=== PATIENT | female | born 1950 ===

== ENCOUNTER 2017-05-09 16:00 | Inpatient (IN) | payer MEDICARE, MEDICAID ==
[~2017-05-09] VITALS: Ht 157.5 cm; Wt 63.5 kg
[2017-05-09] MEDS ORDERED: AMLO10TA2 PO (16:34)
[2017-05-09] MEDS ORDERED: METF500T3 PO (16:34)
[2017-05-09] MEDS ORDERED: [UNRECOGNIZED DRUG - CODE] PO (16:34)
[2017-05-09] MEDS ORDERED: INSU100V28 SUBCUT (16:41)
[2017-05-09] MEDS ORDERED: LISI2.5T2 PO (16:41)
[2017-05-09] MEDS ORDERED: HYDR-4076 PO (16:41)
[2017-05-09] MEDS ORDERED: LORA0.5T PO (16:47)
[2017-05-09] MEDS ORDERED: TEMA7.5C2 PO (17:23)
[2017-05-09] MEDS ORDERED: SENN8.6C5 PO (17:23)
[2017-05-09] MEDS ORDERED: POLY17PO4 PO (17:23)
[2017-05-09] MEDS ORDERED: DIVA125C PO ×2 (17:25)
[2017-05-09 17:31] LABS: *BILIRUBIN,URIN NEGATIVE (NEGATIVE); *BLOOD, URINE NEGATIVE (NEGATIVE); *CLARITY,URINE SLIGHTLY CLOUDY (CLEAR); *COLOR,URINE YELLOW (YELLOW); *KETONES,URINE NEGATIVE (NEGATIVE); *PROTEIN,URINE NEGATIVE (NEGATIVE); *UROBILINOGEN,URINE 0.2 E.U./dl (NORMAL); LEUKOCYTE ESTERASE ,URINE 1+ (NEGATIVE); NITRITE, URINE NEGATIVE (NEGATIVE); PH,URINE 7.5 (5.0-8.0); UGLUCOSE NEGATIVE (NEGATIVE)
[2017-05-09 17:43] LABS: *AMPHETAMINE, URINE NEGATIVE (NEGATIVE); *BARBITURATE, URINE NEGATIVE (NEGATIVE); *CANNABINOID, URINE NEGATIVE (NEGATIVE); *COCCAINE, URINE NEGATIVE (NEGATIVE); *OPIATE, URINE NEGATIVE (NEGATIVE); *PHENCYCLIDINE SCREEN,URINE NEGATIVE (NEGATIVE)
[2017-05-09 17:48] LABS: BACTERIA,URINE MODERATE /HPF (NONE SEEN); RBC,URINE 0-3 /HPF (0-3); SQUAMOUS EPITHELIAL CELL,UR MODERATE /HPF (NONE SEEN); WBC,URINE 20-50 /HPF (0-3)
[2017-05-09 17:55] LABS: BASOPHILS # (AUTO) 0.1 K/uL (0.0-8.0); BASOPHILS % (AUTO) 1.5 % (0.0-2.0); EOSINOPHILS # (AUTO) 0.5 K/uL (0.0-0.7); EOSINOPHILS % (AUTO) 5.7 % (0.0-7.0); HEMATOCRIT 39.6 % (37-47); HEMOGLOBIN 13.1 G/DL (12.0-16.0); LYMPHOCYTES # (AUTO) 3.3 K/UL (0.8-4.8); LYMPHOCYTES % (AUTO) 37.3 % (20.5-51.5); MEAN CORPUSCULAR HEMOGLOBIN 27.4 UUG (27.0-31.0); MEAN CORPUSCULAR HGB CONC 33 g/dL (32.0-37.0); MEAN CORPUSCULAR VOLUME 82.8 FL (81.0-99.0); MONOCYTES # (AUTO) 0.4 K/UL (0.1-1.30); MONOCYTES % (AUTO) 5.1 % (0.0-11.0); NEUTROPHILS # (AUTO) 4.5 K/UL (1.8-8.9); NEUTROPHILS % (AUTO) 50.4 % (38.5-71.5); PLATELET COUNT (AUTO) 257 K/UL (150-450); RED BLOOD CELL COUNT(AUTO) 4.77 MIL/UL (4.2-5.4); WHITE BLOOD COUNT (AUTO) 8.8 K/UL (4.0-11.2)
[2017-05-09 18:09] LABS: CARBON DIOXIDE 28 mmol/L (21-32); CHLORIDE 104 mmol/L (98-107); CREATININE 0.6 mg/dL (0.6-1.3); GLUCOSE 100 mg/dL (74-106); POTASSIUM 3.6 mmol/L (3.5-5.1); UREA NITROGEN, BLOOD 12 mg/dL (7-18)
[2017-05-09 18:15] LABS: ACETAMINOPHEN < 2.0 ug/mL (10-30); ALANINE AMINOTRANSFERASE 22 U/L (14-59); ALKALINE PHOSPHATASE 64 U/L (50-136); ASPARTATE AMINOTRANSFERASE 19 U/L (15-37); BILIRUBIN,DIRECT 0.1 mg/dL (0.0-0.2); BILIRUBIN,TOTAL 0.2 mg/dL (0.2-1.0); TOTAL PROTEIN, SERUM 7.5 g/dL (6.4-8.2)
[2017-05-09] MEDS ORDERED: IV NS 1000 ML 1,000 ML IV ONE (18:15)
[2017-05-09] MEDS ORDERED: ACETAMINOPHEN 650 MG/20.3 ML LIQUID UDC PO ONE (18:15)
[2017-05-09] MEDS ORDERED: CEFTRIAXONE 1 G in IV DEXTROSE 5% 50 ML IV ONE (18:15)
[2017-05-09 18:19] LABS: ETHANOL < 3 MG/DL (0-0)
[2017-05-09] MEDS ORDERED: ACETAMINOPHEN 650 MG/20.3 ML LIQUID UDC ONE (18:31)
[2017-05-09] MEDS ORDERED: CEFTRIAXONE 1 G VIAL ONE (18:31)
--- NOTE | 2017-05-09 18:40 | NUR ---
received report from ER waiting for patient to arrive on the unit.
[2017-05-09] MEDS ORDERED: LORAZEPAM 0.5 MG TABLET PO SCH (18:45)
[2017-05-09] MEDS ORDERED: ACETAMINOPHEN 325 MG TABLET PO PRN (18:45)
[2017-05-09] MEDS ORDERED: Z GUARD REMEDY PASTE 57 GM TUBE TOP PRN ×2 (18:45)
[2017-05-09] MEDS ORDERED: MAGNESIUM HYDROXIDE 30 ML LIQUID UDC PO PRN ×2 (18:45)
[2017-05-09] MEDS ORDERED: ONDANSETRON 4 MG/2 ML VIAL IV PRN ×2 (18:45)
[2017-05-09] MEDS ORDERED: CALCIUM CARBONATE 500 MG TAB.CHEW PO SCH (18:45)
[2017-05-09] MEDS ORDERED: HYDROCODONE/APAP 5-325MG TABLET PO PRN ×2 (18:45)
[2017-05-09] MEDS ORDERED: ZOLPIDEM 5 MG TABLET PO PRN (18:45)
--- NOTE | 2017-05-09 18:55 | NUR ---
transfered to 2nd floor via gurny with no distress noted
--- NOTE | 2017-05-09 19:05 | NUR ---
Patient arrived on the unit, report endorsed to mold shifter nurse, patient in bed, no evidence of distress noted, bed in low position, side rails up x2.
[2017-05-09] MEDS ORDERED: hydrALAZINE HCL 25 MG TABLET PO SCH (19:15)
--- NOTE | 2017-05-09 19:30 | NUR ---
RECEIVED SBAR REPORT FROM AM SHIFT,PT'S A/A/O X2-3 NEWLY ADMISSION FROM ER W/DX OF SONNY CHARLES;ALREADY HAD ADMISSION ORDER FROM MD;WILL CARRY IT OUT.SET UP DINNER TO PT;SHE TOLERATED WELL.PT'S CONFUSED SOMETIMES,UNABLE TO RECALL INFORMATION.LIBERIAN SPEAKER BUT PT'S ABLE TO SPEAK SOME SURINAMESE;PRE CERTIFICATION SPECIALIST BY SHAWNEE/DODIE.BED ALARM'S ON.CONTINUED MONITORING TO PT.MAINTAINED IVF ORDER.KEPT CALL-LIGHT WITHIN REACH.
[2017-05-09 20:00] VITALS: BP 156/63
[2017-05-09] MEDS: DIVALPROEX SPRINKLE 125 MG CAP.SPRINK PO SCH (20:31)
[2017-05-09] MEDS: SENNOSIDES 1 TABLET PO SCH (20:31)
[2017-05-09] MEDS: ENOXAPARIN SODIUM 30 MG/0.3 ML DISP.SYRIN SQ SCH (20:32)
[2017-05-09] MEDS ORDERED: TEMAZEPAM 7.5 MG CAPSULE PO PRN (21:00)
[2017-05-09] MEDS ORDERED: SENNOSIDES 8.6 MG PO SCH (21:00)
[2017-05-09] MEDS ORDERED: hydrALAZINE HCL 25 MG TABLET PO PRN (22:00)
[2017-05-09] MEDS ORDERED: LORAZEPAM 0.5 MG TABLET PO PRN (22:45)
--- NOTE | 2017-05-09 23:30 | NUR ---
PT'S ABLE TO SLEEP WELL,UNLABORED BREATHING NOTED.MAINTAINED IVF ORDER.BED ALARM'S ON.CONTINUED MONITORING TO PT.
--- NOTE | 2017-05-10 02:20 | NUR ---
pt's awake and confused;kept calling many times and asked questions that's out of reality;Ativan 0.5 mg PO x1 as order;reorientation to pt.bed alarm's on.closely monitoring to pt.maintained IVF as order.
[2017-05-10] MEDS: ACETAMINOPHEN 325 MG TABLET PO PRN (02:21)
[2017-05-10 05:10] VITALS: BP 135/56
[2017-05-10] MEDS: IV NS 1000 ML 1,000 ML IV PRN (06:30)
--- NOTE | 2017-05-10 06:45 | NUR ---
PT SLEPT WELL AFTER GOT ATIVAN AND COOPERATIVE W/AM CARE THIS MORNING.NO DISTRESS NOTED IN THE SHIFT.PT REMAINED FREE FROM INJURY.NO FEVER'S SEEN.BED ALARM'S STILL ON.
[2017-05-10 07:21] LABS: CREATININE 0.6 mg/dL (0.6-1.3); MAGNESIUM 1.8 mg/dL (1.8-2.4); PHOSPHOROUS 3.6 mg/dL (2.5-4.9); POTASSIUM 3.2 mmol/L (3.5-5.1)
[2017-05-10 07:39] LABS: BASOPHILS # (AUTO) 0.1 K/uL (0.0-8.0); BASOPHILS % (AUTO) 0.8 % (0.0-2.0); EOSINOPHILS # (AUTO) 0.6 K/uL (0.0-0.7); EOSINOPHILS % (AUTO) 9.8 % (0.0-7.0); HEMATOCRIT 36.8 % (31.2-41.9); HEMOGLOBIN 12.8 g/dL (10.9-14.3); LYMPHOCYTES # (AUTO) 2.4 K/uL (20.0-40.0); MEAN CORPUSCULAR HEMOGLOBIN 28.7 uug (24.7-32.8); MEAN CORPUSCULAR HGB CONC 35 g/dL (32.3-35.6); MEAN CORPUSCULAR VOLUME 82.7 fL (75.5-95.3); MONOCYTES # (AUTO) 0.4 K/uL (2.0-10.0); MONOCYTES % (AUTO) 6.7 % (0.0-11.0); NEUTROPHILS # (AUTO) 2.7 K/uL (1.8-8.9); NEUTROPHILS % (AUTO) 43.7 % (38.5-71.5); PLATELET COUNT (AUTO) 221 K/uL (179-408); RED BLOOD CELL COUNT(AUTO) 4.45 MIL/uL (3.63-4.92)
[2017-05-10 07:49] LABS: WHITE BLOOD COUNT (AUTO) 6.2 K/uL (3.8-11.8)
--- NOTE | 2017-05-10 08:30 | NUR ---
AWAKE COOPERATE WELL SPEAK KENYAN AND LITTLE SPANISH SOME CONFUSED AND FORGETFUL BUT ABLE TO FOLLOW SIMPLE DIRECTION ON FALL PRECAUTION CALL LIGHT IN REACH AND BED ALARM ON
[2017-05-10] MEDS: AMLODIPINE 10 MG TABLET PO SCH (08:31)
[2017-05-10] MEDS: LISINOPRIL 5 MG TABLET PO SCH (08:32)
[2017-05-10] MEDS: DIVALPROEX SPRINKLE 125 MG CAP.SPRINK PO SCH ×3 (08:32→22:21)
[2017-05-10] MEDS: MIRALAX 17 GM POWD.PACK PO SCH (08:33)
--- NOTE | 2017-05-10 09:30 | NUR ---
IV INFILTRATE START A NEW LINE WITH #20 ON RT WRIST
[2017-05-10 11:16] VITALS: BP 130/64
[2017-05-10] MEDS ORDERED: POTASSIUM CHLORIDE 20 MEQ TAB.PRT.SR PO ONE (14:30)
[2017-05-10 15:19] VITALS: BP 132/62
--- NOTE | 2017-05-10 16:00 | NUR ---
CRISIS TEAM COME TO EVALUATION DR REQUEST AND PUT PATIENT ON 72 HR HOLD MHU WAS INFORM AND FAX PAPER WORK REQUEST,PATIENT WAS QUIET AND COOPERATE AT THIS TIME NO AGITATION OR DEPRESSION
--- NOTE | 2017-05-10 17:30 | NUR ---
CONDITION STABLE PAIN AND NAUSEA UNDER CONTROL WITH MEDICATION SAFETY MEASURE PROVIDED CALL LIGHT WITHIN REACH
[2017-05-10] MEDS: CEFTRIAXONE 1 G in IV DEXTROSE 5% 50 ML IV SCH (17:38)
[2017-05-10 20:00] VITALS: BP 120/50
[2017-05-10] MEDS: SENNOSIDES 1 TABLET PO SCH (22:21)
[2017-05-10] MEDS: ENOXAPARIN SODIUM 30 MG/0.3 ML DISP.SYRIN SQ SCH (22:23)
[2017-05-11] MEDS: IV NS 1000 ML 1,000 ML IV PRN ×2 (02:25→16:05)
[2017-05-11 05:05] VITALS: BP 123/53
[2017-05-11 05:11] VITALS: BP 123/53
--- NOTE | 2017-05-11 06:41 | NUR ---
END OF SHIFT SUMMERY: pt is A&O X 2, forgetful, calm cooperative throughout shift. VSS, denies pain. No episodes of N/V. still on 51:50, sitter at the bedside 1:1. still on NS 0.9% @ 75 ml /hr. POC: Cont current care and LAB in am. No acute distress noticed. Will continue to monitor and endorse patient to the next shift nurse to continue the care.
[2017-05-11 06:45] LABS: CREATININE 0.6 mg/dL (0.6-1.3); POTASSIUM 3.7 mmol/L (3.5-5.1)
--- NOTE | 2017-05-11 08:30 | NUR ---
AWAKE FORGETFUL CONFUSED EAT BREAKFAST WELL ON FALL PRECAUTION AND HOLD 72HR SITTER 1:1 AT BEDSIDE CALL LIGHT WITHIN REACH
[2017-05-11] MEDS: DIVALPROEX SPRINKLE 125 MG CAP.SPRINK PO SCH ×2 (08:50→16:49)
[2017-05-11] MEDS: ACETAMINOPHEN 325 MG TABLET PO PRN (08:50)
[2017-05-11] MEDS: AMLODIPINE 10 MG TABLET PO SCH (08:51)
[2017-05-11] MEDS: LISINOPRIL 5 MG TABLET PO SCH (08:51)
[2017-05-11] MEDS: MIRALAX 17 GM POWD.PACK PO SCH (08:52)
[2017-05-11 11:06] VITALS: BP 147/59
--- NOTE | 2017-05-11 14:00 | NUR ---
Truong JEFFERS SEE PATIENT AND ORDER CONSULT PSYCH DR TO SEE PATIENT PRIOR D/C TO MHU TODAY
[2017-05-11] MEDS ORDERED: CEPH-570 PO (14:08)
[2017-05-11 15:44] VITALS: BP 128/48
[2017-05-11] MEDS: CEFTRIAXONE 1 G in IV DEXTROSE 5% 50 ML IV SCH (17:14)
--- NOTE | 2017-05-11 18:00 | NUR ---
DR CUELLAR PSYCH MD SEE PATIENT AND OK TO D/C TO MHU WITH ORDER IV DISCONTINUE CONDITION STABLE CALM AND COOPERATE
--- NOTE | 2017-05-11 18:15 | NUR ---
STABLE CONDITION RESTING QUIET IN BED SITTER 1:1 AT BEDSIDE SAFETY MEASURE PROVIDED CALL LIGHT IN REACH NO AGITATION OR DEPRESSION
--- NOTE | 2017-05-11 18:30 | NUR ---
REPORT GIVEN TO NURSE JORGENSEN VIA TEL AND D/C PATIENT TO MHU VIA W/C BY GREEN MARKETING ANALYST CONDITION STABLE
== END 2017-05-11 18:50 | DRG 689 ==
LOC: ER 16:05 → MED 18:49
PROVIDERS: ADMIT Internal Medicine; ATTEND Internal Medicine
DX: N39.0 Urinary tract infection, site not specified (principal); G92 Toxic encephalopathy; F03.91 Unspecified dementia, unspecified severity, with behavioral disturbance; E78.5 Hyperlipidemia, unspecified; E11.9 Type 2 diabetes mellitus without complications; B96.89 Other specified bacterial agents as the cause of diseases classified elsewhere; I10 Essential (primary) hypertension; F39 Unspecified mood [affective] disorder; E87.6 Hypokalemia; F29 Unspecified psychosis not due to a substance or known physiological condition; Z66 Do not resuscitate; Z79.84 Long term (current) use of oral hypoglycemic drugs
CPT/HCPCS: 36415; 70450; 71010; 80307; 83735; 84100; 85025; 87077; 87086; 93005; A4663; G0480; G0480-TC; J0696; J1650; J7030; J7060

== ENCOUNTER 2017-05-11 19:04 | Inpatient (IN) | payer MEDICARE, MEDICAID ==
[~2017-05-11] VITALS: Ht 149.9 cm; Wt 77.1 kg
[~2017-05-11 19:04] MED LIST: AMLO10TA2 PO; CEPH-570 PO; DIVA125C PO; HYDR-4076 PO; INSU100V28 SUBCUT; LISI2.5T2 PO; LORA0.5T PO; METF500T3 PO; POLY17PO4 PO; SENN8.6C5 PO; TEMA7.5C2 PO; [UNRECOGNIZED DRUG - CODE] PO
[2017-05-11] MEDS ORDERED: TEMAZEPAM 7.5 MG CAPSULE PO PRN (20:15)
[2017-05-11] MEDS ORDERED: MAGNESIUM HYDROXIDE 30 ML LIQUID UDC PO PRN (20:15)
[2017-05-11] MEDS ORDERED: ACETAMINOPHEN 325 MG TABLET PO PRN (20:15)
[2017-05-11] MEDS ORDERED: CLONAZEPAM 0.5 MG TABLET PO PRN (20:15)
[2017-05-11] MEDS ORDERED: MAG HYDROX/AL HYDROX/SIMETH 30 ML LIQUID UDC PO PRN (20:15)
[2017-05-11] MEDS: DIVALPROEX SPRINKLE 125 MG CAP.SPRINK PO SCH (20:39)
[2017-05-11] MEDS ORDERED: DIVALPROEX SPRINKLE 125 MG CAP.SPRINK ONE (20:51)
[2017-05-11] MEDS ORDERED: DIVALPROEX 500 MG TABLET.DR PO SCH (21:00)
[2017-05-11 21:17] VITALS: BP 143/68
--- NOTE | 2017-05-12 06:58 | NUR ---
ADMITTING NOTE PATIENT ADMITTED FROM [facility] ON A 5150 FOR GRAVE DISABILITY 05/10/17 1608 PLACED AFTER FACE TO FACE EVALUATION ASSESSED PATIENT IS CONFUSED AND UNABLE TO FORMULATE A PLAN FOR SELF CARE UNDER THE CARE OF DR. MALONEY, PSYCHIATRIST AND DR. SULLIVAN SUPERVISOR DELIVERY DEPARTMENT. BELT LOOP MACHINE OPERATOR PSYCHIATRIST NOTIFIED OF ADMISSION. ORDERS OBTAINED AND CARRIED OUT. ACCUCHECK AC ORDERED. DR. LALA AWARE RECONCILIATION PENDING. WILL MONITOR FOR SAFETY.
[2017-05-12 07:30] VITALS: BP 145/84
[2017-05-12] MEDS ORDERED: BLOOD SUGAR DIAGNOSTIC 1 EACH STRIP VI SCH (07:30)
[2017-05-12] MEDS ORDERED: CALCIUM CARBONATE 500 MG TAB.CHEW PO PRN (08:15)
[2017-05-12] MEDS ORDERED: hydrALAZINE HCL 25 MG TABLET PO PRN (08:15)
[2017-05-12] MEDS ORDERED: DEXTROSE 50% 50 ML DISP.SYRIN IV PRN (08:15)
[2017-05-12] MEDS: LISINOPRIL 5 MG TABLET PO SCH (08:39)
[2017-05-12] MEDS: DIVALPROEX SPRINKLE 125 MG CAP.SPRINK PO SCH ×3 (08:39→20:14)
[2017-05-12] MEDS: CEPHALEXIN MONOHYDRATE 500 MG CAPSULE PO SCH ×2 (08:39→20:14)
[2017-05-12] MEDS: AMLODIPINE 10 MG TABLET PO SCH (08:39)
[2017-05-12] MEDS: MIRALAX 17 GM POWD.PACK PO SCH (08:40)
[2017-05-12] MEDS: BLOOD SUGAR DIAGNOSTIC 1 EACH STRIP VI SCH ×3 (11:34→20:32)
[2017-05-12] MEDS: METFORMIN XR 500 MG TAB.SR.24H PO SCH (12:49)
[2017-05-12 16:00] VITALS: BP 130/53
[2017-05-12] MEDS: QUETIAPINE FUMARATE 25 MG TABLET PO SCH (16:12)
--- NOTE | 2017-05-12 18:20 | NUR ---
GPS: Nursing Notes: Thought Disorder: Patient is awake and responding to her name, impaired judgment, confused, disoriented, believes that there is nothing wrong with her, "My is Evy.... Not Antoinette...Okay...", "I am not diabetic... There is nothing wrong with me...", isolative and withdrawn in her wrong, covering her head with a towel, refusing to participate in therapeutic groups, needs a lot of prompting to be compliant with her medications, but compliant, unable to formulate a plan for self care, continue with treatment plan.
[2017-05-12 19:45] VITALS: BP 129/64
[2017-05-12] MEDS: SENNOSIDES 1 TABLET PO SCH (20:14)
[2017-05-12] MEDS ORDERED: SENNOSIDES 8.6 MG PO SCH (21:00)
[2017-05-13] MEDS: BLOOD SUGAR DIAGNOSTIC 1 EACH STRIP VI SCH ×4 (06:40→20:19)
[2017-05-13 07:30] VITALS: BP 138/68
[2017-05-13] MEDS: METFORMIN XR 500 MG TAB.SR.24H PO SCH (08:30)
[2017-05-13] MEDS: MIRALAX 17 GM POWD.PACK PO SCH (08:30)
[2017-05-13] MEDS: DIVALPROEX SPRINKLE 125 MG CAP.SPRINK PO SCH ×3 (08:30→20:20)
[2017-05-13] MEDS: QUETIAPINE FUMARATE 25 MG TABLET PO SCH ×2 (08:30→16:47)
[2017-05-13] MEDS: CEPHALEXIN MONOHYDRATE 500 MG CAPSULE PO SCH ×2 (08:30→20:19)
[2017-05-13] MEDS: AMLODIPINE 10 MG TABLET PO SCH (08:31)
[2017-05-13] MEDS: LISINOPRIL 5 MG TABLET PO SCH (08:31)
--- NOTE | 2017-05-13 14:00 | NUR ---
Initial DC Plan: Patient currently resides at [facility] [[id number] [place] [address]; . Per med/surg rehabilitation case coordinator's note, [facility] will not accept patient back due to AWOL risk. Patient's daughter feels a locked facility would be appropriate for patient. SW will follow up with MD, patient, and patient's daughter Beth [[phone]] to discuss most appropriate discharge plans. SW will form a safe and proper discharge.
[2017-05-13 16:55] VITALS: BP 125/60
[2017-05-13 19:59] VITALS: BP 112/59
[2017-05-13] MEDS: SENNOSIDES 1 TABLET PO SCH (20:20)
[2017-05-14] MEDS: BLOOD SUGAR DIAGNOSTIC 1 EACH STRIP VI SCH ×4 (06:30→20:09)
--- NOTE | 2017-05-14 06:50 | NUR ---
PATIENT SLEPT FOR APPROX 8 HRS THROUGH THE NIGHT. NO BEHAVIOR PROBLEMS NOTED DURING THE SHIFT. COMPLIANT WITH ADL (SHOWER, BRUSHING TEETH) MEDICATION REGIMENT AND PLAN OF CARE. BLOOD GLUCOSE STABLE AT THIS TIME. PT NOTED A/O X 2. AMBULATING WITH SLOW BUT STEADY GAIT.
[2017-05-14 07:19] LABS: BASOPHILS % (AUTO) 0.6 % (0.0-2.0); EOSINOPHILS # (AUTO) 0.7 K/uL (0.0-0.7); EOSINOPHILS % (AUTO) 9.3 % (0.0-7.0); HEMATOCRIT 41.1 % (31.2-41.9); HEMOGLOBIN 14.1 g/dL (10.9-14.3); LYMPHOCYTES # (AUTO) 3.8 K/uL (20.0-40.0); LYMPHOCYTES % (AUTO) 50.4 % (20.5-51.5); MEAN CORPUSCULAR HEMOGLOBIN 28.7 uug (24.7-32.8); MEAN CORPUSCULAR HGB CONC 34 g/dL (32.3-35.6); MEAN CORPUSCULAR VOLUME 83.6 fL (75.5-95.3); MONOCYTES # (AUTO) 0.3 K/uL (2.0-10.0); MONOCYTES % (AUTO) 3.5 % (0.0-11.0); NEUTROPHILS # (AUTO) 2.8 K/uL (1.8-8.9); NEUTROPHILS % (AUTO) 36.2 % (38.5-71.5); PLATELET COUNT (AUTO) 266 K/uL (179-408); RED BLOOD CELL COUNT(AUTO) 4.91 MIL/uL (3.63-4.92); WHITE BLOOD COUNT (AUTO) 7.6 K/uL (3.8-11.8)
[2017-05-14 07:32] LABS: CREATININE 0.8 mg/dL (0.6-1.3); POTASSIUM 3.9 mmol/L (3.5-5.1)
[2017-05-14 08:00] VITALS: BP 126/60
[2017-05-14] MEDS: METFORMIN XR 500 MG TAB.SR.24H PO SCH (09:54)
[2017-05-14] MEDS: LISINOPRIL 5 MG TABLET PO SCH (09:54)
[2017-05-14] MEDS: AMLODIPINE 10 MG TABLET PO SCH (09:55)
[2017-05-14] MEDS: DIVALPROEX SPRINKLE 125 MG CAP.SPRINK PO SCH ×3 (09:55→20:28)
[2017-05-14] MEDS: CEPHALEXIN MONOHYDRATE 500 MG CAPSULE PO SCH ×2 (09:55→20:28)
[2017-05-14] MEDS: QUETIAPINE FUMARATE 25 MG TABLET PO SCH ×2 (09:55→17:30)
[2017-05-14] MEDS: MIRALAX 17 GM POWD.PACK PO SCH (09:56)
--- NOTE | 2017-05-14 14:32 | NUR ---
RECEIVED A PHONE CALL FROM THE PT'S DAUGHTER, WHO WAS ASKING ABOUT ADDRESS AND VISITING HOURS. WHEN GIVING, THE ADDRESS, THE DAUGHTER SAID SHE WAS NOT READY TO TAKE IT DOWN. WHILE WAITING FOR HER TO BE READY, THE PHONE CALL DROPPED. SHE CALLED AGAIN IN A HOSTILE VOICE DEMANDED TO TALK TO THE ACOUSTICAL INSTALLER, SAYING THAT THE NURSE IS RUDE AND SHE IS DONE TALKING TO HER. THE DAUGHTER STATED "YOU DON'T SPEAK GOOD KAZAKH AND I AM COMING AND WILL BE IN YOUR FACE!" AFTER THIS SHE HUNG UP THE PHONE. THE ACOUSTICAL INSTALLER Shelby LOVETT WAS NOTIFIED.
[2017-05-14 16:00] VITALS: BP 133/68
[2017-05-14] MEDS: SENNOSIDES 1 TABLET PO SCH (20:28)
[2017-05-14] MEDS: INSULIN REGULAR, HUMAN 300 UNIT/3 ML VIAL SQ PRN (20:30)
[2017-05-14 21:20] VITALS: BP 134/69
[2017-05-15] MEDS: BLOOD SUGAR DIAGNOSTIC 1 EACH STRIP VI SCH ×4 (06:30→20:27)
--- NOTE | 2017-05-15 06:44 | NUR ---
PATIENT SLEPT FOR APPROX 7.00HRS THROUGH THE NIGHT. SHE BEHAVIOR PROBLEMS NOTED OR REPORTED DURING THE SHIFT. PATIENT NOTED WITH DEPRESSED MOOD, WITHDRAWN IN HER BED. POOR INTERACTION WITH STAFF. SHE STATED THAT SHE HAD BM YESTERDAY.
[2017-05-15 07:30] VITALS: BP 114/55
[2017-05-15] MEDS: DIVALPROEX SPRINKLE 125 MG CAP.SPRINK PO SCH ×3 (08:30→20:26)
[2017-05-15] MEDS: LISINOPRIL 5 MG TABLET PO SCH (08:31)
[2017-05-15] MEDS: QUETIAPINE FUMARATE 25 MG TABLET PO SCH ×2 (08:32→16:07)
[2017-05-15] MEDS: METFORMIN XR 500 MG TAB.SR.24H PO SCH (08:32)
[2017-05-15] MEDS: AMLODIPINE 10 MG TABLET PO SCH (08:32)
[2017-05-15] MEDS: CEPHALEXIN MONOHYDRATE 500 MG CAPSULE PO SCH ×2 (08:33→20:26)
[2017-05-15] MEDS: MIRALAX 17 GM POWD.PACK PO SCH (08:33)
[2017-05-15] MEDS: INSULIN REGULAR, HUMAN 300 UNIT/3 ML VIAL SQ PRN (11:50)
[2017-05-15 15:11] VITALS: BP 112/60
--- NOTE | 2017-05-15 16:19 | NUR ---
Gps/Leather Cutter- Blood sugar accu-check 58, asymtomatic, skin warm dry, sony crackers and 4 0z of OJ given, tolerated well will attempt to recheck BS in 15 minutes.
--- NOTE | 2017-05-15 16:42 | NUR ---
Gps/Target Setter-Dr Romero was called and was informed of BS 58 , no orders received.. Will recheck blood sugar
--- NOTE | 2017-05-15 16:51 | NUR ---
Gps/Manager Benefit- BS rechecked 86. Skin warm dry to touch
[2017-05-15 20:00] VITALS: BP 126/65
--- NOTE | 2017-05-15 20:00 | NUR ---
pt received in her room lying in bed awake, a/o x1-2, quiet, withdrawn and isolative, pt encouraged to socialize and interact with peers, Indonesian speaking with very little Bengali. BS 97, Bedtime snacks provided, will continue to monitor closely.
[2017-05-15] MEDS: SENNOSIDES 1 TABLET PO SCH (20:27)
[2017-05-16] MEDS: BLOOD SUGAR DIAGNOSTIC 1 EACH STRIP VI SCH ×4 (06:54→20:22)
[2017-05-16 07:30] VITALS: BP 121/58
[2017-05-16] MEDS: QUETIAPINE FUMARATE 25 MG TABLET PO SCH ×2 (08:29→16:34)
[2017-05-16] MEDS: DIVALPROEX SPRINKLE 125 MG CAP.SPRINK PO SCH ×3 (08:30→20:21)
[2017-05-16] MEDS: LISINOPRIL 5 MG TABLET PO SCH (08:30)
[2017-05-16] MEDS: METFORMIN XR 500 MG TAB.SR.24H PO SCH (08:30)
[2017-05-16] MEDS: CEPHALEXIN MONOHYDRATE 500 MG CAPSULE PO SCH (08:30)
[2017-05-16] MEDS: MIRALAX 17 GM POWD.PACK PO SCH (08:31)
[2017-05-16] MEDS: AMLODIPINE 10 MG TABLET PO SCH (08:32)
[2017-05-16 15:00] VITALS: BP 143/73
[2017-05-16 19:58] VITALS: BP 132/67
[2017-05-16] MEDS: SENNOSIDES 1 TABLET PO SCH (20:21)
[2017-05-16] MEDS: NITROFURANTOIN/NITROFURAN MAC 100 MG CAPSULE PO SCH (20:21)
[2017-05-17] MEDS: BLOOD SUGAR DIAGNOSTIC 1 EACH STRIP VI SCH ×4 (06:57→20:13)
[2017-05-17 07:30] VITALS: BP 121/50
[2017-05-17] MEDS: AMLODIPINE 10 MG TABLET PO SCH (08:27)
[2017-05-17] MEDS: DIVALPROEX SPRINKLE 125 MG CAP.SPRINK PO SCH ×3 (08:27→20:12)
[2017-05-17] MEDS: METFORMIN XR 500 MG TAB.SR.24H PO SCH (08:27)
[2017-05-17] MEDS: MIRALAX 17 GM POWD.PACK PO SCH (08:28)
[2017-05-17] MEDS: LISINOPRIL 5 MG TABLET PO SCH (08:28)
[2017-05-17] MEDS: QUETIAPINE FUMARATE 25 MG TABLET PO SCH ×2 (08:28→16:43)
[2017-05-17] MEDS: NITROFURANTOIN/NITROFURAN MAC 100 MG CAPSULE PO SCH ×2 (08:28→20:26)
[2017-05-17 15:35] VITALS: BP 127/66
[2017-05-17 19:42] VITALS: BP 109/57
[2017-05-17] MEDS: SENNOSIDES 1 TABLET PO SCH (20:12)
[2017-05-18 07:30] VITALS: BP 117/62
[2017-05-18] MEDS: DIVALPROEX SPRINKLE 125 MG CAP.SPRINK PO SCH ×3 (09:46→20:20)
[2017-05-18] MEDS: METFORMIN XR 500 MG TAB.SR.24H PO SCH (09:47)
[2017-05-18] MEDS: AMLODIPINE 10 MG TABLET PO SCH (09:47)
[2017-05-18] MEDS: QUETIAPINE FUMARATE 25 MG TABLET PO SCH ×2 (09:47→17:41)
[2017-05-18] MEDS: NITROFURANTOIN/NITROFURAN MAC 100 MG CAPSULE PO SCH ×2 (09:47→20:20)
[2017-05-18] MEDS: MIRALAX 17 GM POWD.PACK PO SCH (09:47)
[2017-05-18] MEDS: LISINOPRIL 5 MG TABLET PO SCH (09:47)
[2017-05-18] MEDS: INSULIN REGULAR, HUMAN 300 UNIT/3 ML VIAL SQ PRN ×2 (12:04→20:29)
[2017-05-18] MEDS: BLOOD SUGAR DIAGNOSTIC 1 EACH STRIP VI SCH ×3 (12:04→20:28)
[2017-05-18 15:33] VITALS: BP 125/73
[2017-05-18 20:02] VITALS: BP 114/56
[2017-05-18] MEDS: SENNOSIDES 1 TABLET PO SCH (20:20)
[2017-05-19] MEDS: BLOOD SUGAR DIAGNOSTIC 1 EACH STRIP VI SCH ×3 (06:31→16:43)
[2017-05-19 07:30] VITALS: BP 117/55
[2017-05-19] MEDS: NITROFURANTOIN/NITROFURAN MAC 100 MG CAPSULE PO SCH (09:41)
[2017-05-19] MEDS: QUETIAPINE FUMARATE 25 MG TABLET PO SCH ×2 (09:41→16:47)
[2017-05-19] MEDS: METFORMIN XR 500 MG TAB.SR.24H PO SCH (09:41)
[2017-05-19] MEDS: AMLODIPINE 10 MG TABLET PO SCH (09:42)
[2017-05-19] MEDS: MIRALAX 17 GM POWD.PACK PO SCH (09:42)
[2017-05-19] MEDS: DIVALPROEX SPRINKLE 125 MG CAP.SPRINK PO SCH ×2 (09:42→16:47)
[2017-05-19] MEDS: LISINOPRIL 5 MG TABLET PO SCH (09:42)
[2017-05-19] MEDS: INSULIN REGULAR, HUMAN 300 UNIT/3 ML VIAL SQ PRN ×2 (11:56→12:00)
--- NOTE | 2017-05-19 12:08 | NUR ---
DC Note: Patient will be discharged to [facility] [[address] [facility], [place] [address]; ] via ambulance at 3pm. LIAM spoke with Margaret at [facility] who confirmed discharge plans. LIAM spoke with patient's daughter Beth Romo [[phone]] who is aware and agreeable to discharge plans. Patient is aware and agreeable to discharge plans. Patient will follow up with Dr. Osei (Deburrer Machine) and Dr. Frias (Psychiatrist).
[2017-05-19 16:16] VITALS: BP 137/74
--- NOTE | 2017-05-19 19:25 | NUR ---
GPS: 2 attendants from [facility] transportation here to transport pt. to [facility]. Left via gurney in stable condition with all her personal belongings. Health instructions given to pt. prior to discharge. No skin issues noted upon discharge.
== END 2017-05-19 19:29 | DRG 885 ==
LOC: GPS 19:04
PROVIDERS: ADMIT Psychiatry & Neurology Psychiatry; ATTEND Internal Medicine
DX: F23 Brief psychotic disorder (principal); F03.91 Unspecified dementia, unspecified severity, with behavioral disturbance; N39.0 Urinary tract infection, site not specified; E66.9 Obesity, unspecified; Z68.34 Body mass index [BMI] 34.0-34.9, adult; F41.9 Anxiety disorder, unspecified; E11.9 Type 2 diabetes mellitus without complications; E78.5 Hyperlipidemia, unspecified; I10 Essential (primary) hypertension; Z79.899 Other long term (current) drug therapy; Z79.4 Long term (current) use of insulin; F32.9 Major depressive disorder, single episode, unspecified
CPT/HCPCS: 36415; 80164; 85025; A4663; J1815